=== PATIENT | male | born 1990 | race Caucasian/White ===

== ENCOUNTER 2020-06-25 04:58 | Emergency (ER) | payer OTHER ==
[~2020-06-25] VITALS: Ht 190.5 cm; Wt 78.2 kg
[2020-06-25] MEDS ORDERED: LAMI1TAB7 PO (05:28)
[2020-06-25] MEDS ORDERED: SING10TA32 PO (05:28)
[2020-06-25] MEDS ORDERED: KLON1TAB PO (05:28)
[2020-06-25] MEDS ORDERED: NEUR300C PO (05:28)
[2020-06-25 05:36] LABS: BASO % 0.3 % (0.0-1.0); EOS # 0.3 10^3/uL (0.0-0.5); EOS % 3.6 % (0.0-3.0); HEMATOCRIT 40.9 % (42.0-52.0); LYMPH # 3.1 10^3/uL (1.5-5.0); LYMPH % 32.6 % (24.0-44.0); MEAN CORPUSCULAR HEMOGLOBIN 29.9 pg (27.0-33.0); MEAN CORPUSCULAR HGB CONC 34.2 g/dl (32.0-36.5); MEAN CORPUSCULAR VOLUME 87.2 fl (80.0-96.0); MONO # 0.6 10^3/uL (0.0-0.8); MONO % 6.4 % (0.0-5.0); NEUTROPHILS # 5.4 10^3/uL (1.5-8.5); NEUTROPHILS % 56.7 % (36.0-66.0); PLATELET COUNT, AUTOMATED 276 10^3/uL (150-450); RED BLOOD COUNT 4.69 10^6/uL (4.30-6.10); WHITE BLOOD COUNT 9.5 10^3/uL (4.0-10.0)
--- NOTE | 2020-06-25 05:57 | REPVR ---
PROCEDURE INFORMATION: Exam: CT Head Without Contrast Exam date and time: 06/25/2020 5:02 AM Age: 30 years old Clinical indication: Other: Seizure; Additional info: New onset seizure TECHNIQUE: Imaging protocol: Computed tomography of the head without contrast. Radiation optimization: All CT scans at this facility use at least one of these dose optimization techniques: automated exposure control; mA and/or kV adjustment per patient size (includes targeted exams where dose is matched to clinical indication); or iterative reconstruction. COMPARISON: No relevant prior studies available. FINDINGS: Brain: Normal. No hemorrhage. Unremarkable white matter. No mass effect. Cerebral ventricles: No ventriculomegaly. Bones/joints: Unremarkable. No acute fracture. Paranasal sinuses: Mild paranasal sinus disease. Mastoid air cells: Visualized mastoid air cells are well aerated. Soft tissues: Unremarkable. IMPRESSION: No acute intracranial pathology. Electronically signed by: Devin Lobo On 06/25/2020 05:56:58 AM
[2020-06-25 06:08] LABS: ALT/SGPT 29 U/L (12-78); BILIRUBIN,DIRECT 0.2 MG/DL (0.0-0.2); BILIRUBIN,TOTAL 0.8 MG/DL (0.2-1.0); BLOOD UREA NITROGEN 15 MG/DL (7-18); CALCIUM LEVEL 9.5 MG/DL (8.5-10.1); CARBON DIOXIDE LEVEL 28 MEQ/L (21-32); CHLORIDE LEVEL 105 MEQ/L (98-107); CREATININE FOR GFR 0.92 MG/DL (0.70-1.30); GLOMERULAR FILTRATION RATE > 60.0 (>60); GLUCOSE, FASTING 76 MG/DL (70-100); POTASSIUM SERUM 3.7 MEQ/L (3.5-5.1); SODIUM LEVEL 137 MEQ/L (136-145); TOTAL PROTEIN 7.4 GM/DL (6.4-8.2)
[2020-06-25] MEDS ORDERED: LAMI1TAB8 PO (06:25)
--- NOTE | 2020-06-25 06:41 | ECGEPIP ---
[facility] - ED Test Date: 2020-06-25 Pat Name: SNEHAL FINNEGAN Department: Room: - Gender: Male Investigator Vice: : 1990 Requested By: Arcadio Dwyer Order Number: [id number] Reading MD: Eligio Browning Measurements Intervals [place] Rate: 97 P: 71 ME: 161 QRS: 79 QRSD: 101 T: 59 QT: 322 QTc: 410 Interpretive Statements SINUS RHYTHM INCOMPLETE RIGHT BUNDLE BRANCH BLOCK NO PRIORS FOR COMPARISON Electronically Signed on 06-25-2020 6:41:17 EDT by Eligio Browning
[2020-06-25 06:43] VITALS: BP 126/72
== END 2020-06-25 06:51 | disposition home or self-care (01) ==
LOC: M ED 04:58
DX: R56.9 Unspecified convulsions (principal); I45.19 Other right bundle-branch block; Z79.899 Other long term (current) drug therapy